=== PATIENT | female | born 1960 | race Asian ===

== ENCOUNTER 2019-10-24 18:45 | Emergency (ER) | payer OTHER ==
[~2019-10-24] VITALS: Ht 152.4 cm; Wt 59.0 kg
[2019-10-24 18:55] VITALS: BP 161/100
--- NOTE | 2019-10-24 19:32 | NUR ---
Patient discharged to home in stable condition. Written and verbal after care instructions given. Patient verbalizes understanding of instruction. Pt ambulatory with a steady gait
== END 2019-10-24 19:32 | disposition home or self-care (01) ==
LOC: ER 18:50
DX: S05.11XA Contusion of eyeball and orbital tissues, right eye, initial encounter (principal); H05.011 Cellulitis of right orbit; I10 Essential (primary) hypertension; Z88.8 Allergy status to other drugs, medicaments and biological substances; X58.XXXA Exposure to other specified factors, initial encounter; Y93.89 Activity, other specified; Y92.89 Other specified places as the place of occurrence of the external cause; Y99.8 Other external cause status

== ENCOUNTER 2024-01-19 15:21 | Emergency (ER) | payer OTHER ==
[~2024-01-19] VITALS: Ht 157.5 cm; Wt 54.4 kg
[2024-01-19 16:02] VITALS: BP 134/92; TEMP 97.9; O2SAT 99
[2024-01-19] MEDS ORDERED: SILV50CR32 TP (16:38)
[2024-01-19] MEDS ORDERED: TDAP [DIPH/PERTUSSIS/TET] 0.5 ML VIAL IM ONE (17:02)
[2024-01-19] MEDS ORDERED: IBUPROFEN 400 MG TABLET ONE (17:03)
[2024-01-19] MEDS: TDAP [DIPH/PERTUSSIS/TET] 0.5 ML VIAL IM ONE (17:15)
[2024-01-19] MEDS: IBUPROFEN 400 MG TABLET PO ONE (17:15)
== END 2024-01-19 18:30 | disposition home or self-care (01) ==
LOC: ER 15:32
DX: T23.261A Burn of second degree of back of right hand, initial encounter (principal); T79.9XXA Unspecified early complication of trauma, initial encounter; I10 Essential (primary) hypertension; Z88.8 Allergy status to other drugs, medicaments and biological substances; X10.0XXA Contact with hot drinks, initial encounter; Y93.89 Activity, other specified; Y92.098 Other place in other non-institutional residence as the place of occurrence of the external cause; Y99.8 Other external cause status
CPT/HCPCS: 90715

== ENCOUNTER 2025-02-01 10:59 | Emergency (ER) | payer OTHER ==
[~2025-02-01] VITALS: Ht 157.5 cm; Wt 54.4 kg
[~2025-02-01 10:59] MED LIST: SILV50CR32 TP
[2025-02-01 11:26] VITALS: BP 130/67; TEMP 98.3
[2025-02-01] MEDS ORDERED: VALA100026 PO (11:28)
[2025-02-01 11:41] VITALS: O2SAT 99
== END 2025-02-01 11:42 | disposition home or self-care (01) ==
LOC: ER 10:59
DX: B02.9 Zoster without complications (principal); I10 Essential (primary) hypertension; Z79.624 Long term (current) use of inhibitors of nucleotide synthesis; Z86.19 Personal history of other infectious and parasitic diseases